=== PATIENT | female | born 1990 | race Caucasian/White ===

== ENCOUNTER 2019-07-21 09:57 | Emergency (ER) | payer SELFPAY ==
[~2019-07-21] VITALS: Ht 175.3 cm; Wt 54.9 kg
[2019-07-21 10:46] LABS: BASOPHILS % (AUTO) 0.8 % (0.0-2.0); EOSINOPHILS % (AUTO) 1.1 % (0.0-3.0); HEMATOCRIT 38.4 % (37.0-47.0); HEMOGLOBIN 13.1 G/DL (12.0-16.0); LYMPHOCYTES % (AUTO) 21.8 % (20.0-45.0); MEAN CORPUSCULAR VOLUME 83 FL (80-99); MONOCYTES % (AUTO) 7.5 % (1.0-10.0); NEUTROPHILS % (AUTO) 68.8 % (45.0-75.0); PLATELET COUNT 254 K/UL (150-450); RED BLOOD COUNT 4.62 M/UL (4.20-5.40); WHITE BLOOD COUNT 8.7 K/UL (4.8-10.8)
[2019-07-21 10:49] LABS: APPEARANCE,URINE CLOUDY; BILIRUBIN, URINE NEGATIVE (NEGATIVE); COLOR,URINE PALE YELLOW; GLUCOSE, URINE (UA) NEGATIVE (NEGATIVE); KETONES,URINE NEGATIVE (NEGATIVE); LEUKOCYTE ESTERASE ,URINE NEGATIVE (NEGATIVE); NITRITE,URINE NEGATIVE (NEGATIVE); PH,URINE 7 (4.5-8.0); PROTEIN,URINE NEGATIVE (NEGATIVE); UROBILINOGEN,URINE NORMAL MG/DL (0.0-1.0)
[2019-07-21 11:06] LABS: ALANINE AMINOTRANSFERASE 16 U/L (12-78); ALBUMIN 3.7 G/DL (3.4-5.0); ALBUMIN/GLOBULIN RATIO 1.4 (1.0-2.7); ALKALINE PHOSPHATASE 30 U/L (46-116); ANION GAP 7 mmol/L (5-15); ASPARTATE AMINO TRANSFERASE 14 U/L (15-37); BILIRUBIN,TOTAL 0.5 MG/DL (0.2-1.0); BLOOD UREA NITROGEN 11 mg/dL (7-18); CALCIUM 9.1 MG/DL (8.5-10.1); CARBON DIOXIDE 28 MMOL/L (21-32); CHLORIDE 103 MMOL/L (98-107); CREATININE 0.7 MG/DL (0.55-1.30); POTASSIUM 3.7 MMOL/L (3.5-5.1); SODIUM 138 MMOL/L (136-145)
--- NOTE | 2019-07-21 11:11 | Emergency Room Report ---
History of Present Illness General Chief Complaint: Complications Source: Patient Present Illness HPI This patient is at 12 weeks. She states she is in the [place] area for a . She normally gets her OB care in [place]. She states she presents emergency department because for the past 4 days she has had vaginal bleeding that has primarily been spotting and cramping. She states she has a "heart shaped" uterus. She states that she was told she is high risk for miscarriage by her OB. She denies fever or chills. She states she has had significant nausea of and had been on Zofran. She states she has not been able to eat or drink much over the past few days because she left the Zofran in [place]. She also has felt lightheaded. She denies chest pain or shortness of breath. She denies cough or congestion. She has no other complaints. Allergies: Uncoded Allergies: CODEIN (Allergy, Unknown, 07/21/19) COVID-19 Screening Contact w/high risk pt: No Recent Travel to affected area: No Experienced COVID-19 symptoms?: No Patient History Past Medical History: none Past Surgical History: none Social History: Denies: smoking, alcohol use, drug use Last Menstrual Period: Apr 2019 Now: Yes - 12 weeks : 1 Para: 0 Reviewed Nursing Documentation: PMH: Agreed; PSxH: Agreed Nursing Documentation-PMH Past Medical History: No Stated History Review of Systems All Other Systems: negative except mentioned in HPI Physical Exam Vital Signs Date Time Temp Pulse Resp B/P (MAP) Pulse Ox O2 Delivery O2 Flow Rate FiO2 07/21/19 10:03 97.7 89 18 113/67 (82) 96 Room Air Sp02 EP Interpretation: reviewed, normal General Appearance: no apparent distress, alert, GCS 15, non-toxic Head: normocephalic, atraumatic Eyes: bilateral eye normal inspection, bilateral eye PERRL ENT: hearing grossly normal, normal pharynx, no angioedema, normal voice Neck: full range of motion, supple/symm/no masses Respiratory: no respiratory distress, no retraction, no accessory muscle use, speaking full sentences Cardiovascular #1: regular rate, rhythm, no edema Gastrointestinal: soft, non-distended, no guarding, no rebound, tenderness - Mild ttp over lower pelvis Rectal: deferred Musculoskeletal: back normal, normal range of motion, gait/station normal, non- tender Neurologic: alert, motor strength/tone normal, oriented x3, sensory intact, responsive, speech normal Psychiatric: judgement/insight normal, memory normal, mood/affect normal, no suicidal/homicidal ideation Skin: no rash, normal color Medical Decision Making Diagnostic Impression: Primary Impression: First trimester bleeding ER Course This patient underwent pelvic ultrasound. She was found to have an alive intrauterine that measures 11 weeks +2 days. heart tones and cardiac activity were noted. Please see official ultrasound report. Patient's laboratory work-up was benign. The patient was not anemic. I suspect the patient's lightheadedness is secondary to not only but also possibly poor hydration. I educated the patient that she would need to drink approximately a gallon of water a day in order to stay hydrated. I will also give the patient a prescription of Zofran for her nausea. She was educated on the black box warning for this medication. She indicated she would like to continue using the Zofran despite the black box warning. She was reassured. Her blood type is O+. She does not require RhoGam. The patient is given close return precautions and follow-up instructions. Laboratory Tests Test 07/21/19 10:30 White Blood Count 8.7 K/UL (4.8-10.8) Red Blood Count 4.62 M/UL (4.20-5.40) Hemoglobin 13.1 G/DL (12.0-16.0) Hematocrit 38.4 % (37.0-47.0) Mean Corpuscular Volume 83 FL (80-99) Mean Corpuscular Hemoglobin 28.3 PG (27.0-31.0) Mean Corpuscular Hemoglobin Concent 34.0 G/DL (32.0-36.0) Red Cell Distribution Width 11.0 % (11.6-14.8) L Platelet Count 254 K/UL (150-450) Mean Platelet Volume 5.2 FL (6.5-10.1) L Neutrophils (%) (Auto) 68.8 % (45.0-75.0) Lymphocytes (%) (Auto) 21.8 % (20.0-45.0) Monocytes (%) (Auto) 7.5 % (1.0-10.0) Eosinophils (%) (Auto) 1.1 % (0.0-3.0) Basophils (%) (Auto) 0.8 % (0.0-2.0) Urine Color Pale yellow Urine Appearance Cloudy Urine pH 7 (4.5-8.0) Urine Specific [place] 1.010 (1.005-1.035) Urine Protein Negative (NEGATIVE) Urine Glucose (UA) Negative (NEGATIVE) Urine Ketones Negative (NEGATIVE) Urine Blood Negative (NEGATIVE) Urine Nitrite Negative (NEGATIVE) Urine Bilirubin Negative (NEGATIVE) Urine Urobilinogen Normal MG/DL (0.0-1.0) Urine Leukocyte Esterase Negative (NEGATIVE) Sodium Level 138 MMOL/L (136-145) Potassium Level 3.7 MMOL/L (3.5-5.1) Chloride Level 103 MMOL/L (98-107) Carbon Dioxide Level 28 MMOL/L (21-32) Anion Gap 7 mmol/L (5-15) Blood Urea Nitrogen 11 mg/dL (7-18) Creatinine 0.7 MG/DL (0.55-1.30) Estimated Glomerular Filtration Rate > 60 mL/min (>60) Glucose Level 88 MG/DL (74-106) Calcium Level 9.1 MG/DL (8.5-10.1) Total Bilirubin 0.5 MG/DL (0.2-1.0) Aspartate Amino Transferase (AST) 14 U/L (15-37) L Alanine Aminotransferase (ALT) 16 U/L (12-78) Alkaline Phosphatase 30 U/L (46-116) L Total Protein 6.3 G/DL (6.4-8.2) L Albumin 3.7 G/DL (3.4-5.0) Globulin 2.6 g/dL Albumin/Globulin Ratio 1.4 (1.0-2.7) Human Chorionic Gonadotropin, Quant 33832 mIU/mL (1-6) H Laboratory Tests Test 07/21/19 10:30 White Blood Count 8.7 K/UL (4.8-10.8) Red Blood Count 4.62 M/UL (4.20-5.40) Hemoglobin 13.1 G/DL (12.0-16.0) Hematocrit 38.4 % (37.0-47.0) Mean Corpuscular Volume 83 FL (80-99) Mean Corpuscular Hemoglobin 28.3 PG (27.0-31.0) Mean Corpuscular Hemoglobin Concent 34.0 G/DL (32.0-36.0) Red Cell Distribution Width 11.0 % (11.6-14.8) L Platelet Count 254 K/UL (150-450) Mean Platelet Volume 5.2 FL (6.5-10.1) L Neutrophils (%) (Auto) 68.8 % (45.0-75.0) Lymphocytes (%) (Auto) 21.8 % (20.0-45.0) Monocytes (%) (Auto) 7.5 % (1.0-10.0) Eosinophils (%) (Auto) 1.1 % (0.0-3.0) Basophils (%) (Auto) 0.8 % (0.0-2.0) Urine Color Pale yellow Urine Appearance Cloudy Urine pH 7 (4.5-8.0) Urine Specific [place] 1.010 (1.005-1.035) Urine Protein Negative (NEGATIVE) Urine Glucose (UA) Negative (NEGATIVE) Urine Ketones Negative (NEGATIVE) Urine Blood Negative (NEGATIVE) Urine Nitrite Negative (NEGATIVE) Urine Bilirubin Negative (NEGATIVE) Urine Urobilinogen Normal MG/DL (0.0-1.0) Urine Leukocyte Esterase Negative (NEGATIVE) Sodium Level 138 MMOL/L (136-145) Potassium Level 3.7 MMOL/L (3.5-5.1) Chloride Level 103 MMOL/L (98-107) Carbon Dioxide Level 28 MMOL/L (21-32) Anion Gap 7 mmol/L (5-15) Blood Urea Nitrogen 11 mg/dL (7-18) Creatinine 0.7 MG/DL (0.55-1.30) Estimated Glomerular Filtration Rate > 60 mL/min (>60) Glucose Level 88 MG/DL (74-106) Calcium Level 9.1 MG/DL (8.5-10.1) Total Bilirubin 0.5 MG/DL (0.2-1.0) Aspartate Amino Transferase (AST) 14 U/L (15-37) L Alanine Aminotransferase (ALT) 16 U/L (12-78) Alkaline Phosphatase 30 U/L (46-116) L Total Protein 6.3 G/DL (6.4-8.2) L Albumin 3.7 G/DL (3.4-5.0) Globulin 2.6 g/dL Albumin/Globulin Ratio 1.4 (1.0-2.7) Human Chorionic Gonadotropin, Quant Pending Last Vital Signs Date Time Temp Pulse Resp B/P (MAP) Pulse Ox O2 Delivery O2 Flow Rate FiO2 07/21/19 10:03 97.7 89 18 113/67 (82) 96 Room Air Status: improved Disposition: HOME, SELF-CARE Condition: Improved Scripts Ondansetron Odt* (ZOFRAN ODT*) 8 Mg Tab.rapdis 8 MG ORAL Q6H PRN for Nausea & Vomiting, #20 TAB Prov: Frida Gold DO 07/21/19 Referrals: NON PHYSICIAN (PCP) Frida Gold DO Jul 21, 2019 11:11
[2019-07-21] MEDS ORDERED: ZOFRAN ODT8 MG ORAL (11:33)
--- NOTE | 2019-07-21 12:14 | Diagnostic Imaging Report ---
Indication: Pelvic cramping, spotting 4 days, patient Technique: Transabdominal and transvaginal images of the pelvis Comparison: none Findings: Uterus measures 10.5 cm length by 8.4 cm AP. Within the endometrium, there is a gestational sac. This contains a pole. pole demonstrates a crown-rump length of 4.5 cm, corresponding to an estimated gestational age of 11 weeks 2 days. Estimated date of delivery is 02/07/2020. There is positive heart activity, heart rate 170 bpm. The placenta is lateral fundal, to the right. The cervix is closed, endocervical canal measuring 4.2 cm in length. Amniotic fluid volume is normal. No myometrial abnormality. Neither ovary could be visualized. Impression: 11 week 2 day, by crown-rump length measurement, single live intrauterine . No unusual features
[2019-07-21 12:30] VITALS: BP 113/67
== END 2019-07-21 12:30 | disposition home or self-care (01) ==
LOC: EMR 10:45
DX: O26.851 Spotting complicating pregnancy, first trimester (principal); Z3A.11 11 weeks gestation of pregnancy; R11.0 Nausea; Z88.6 Allergy status to analgesic agent
CPT/HCPCS: 36415; 76801; 76817; 80053; 81003; 84702; 85025; 86850; 86900; 86901; 96360; 99284; J7030